=== PATIENT | female | born 1960 | race Caucasian/White ===

== ENCOUNTER 2021-06-08 12:29 | Day surgery (SDC) | payer BC ==
[~2021-06-08] VITALS: Ht 167.6 cm; Wt 70.9 kg
[~2021-06-08 12:29] MED LIST: IBUP200 PO; KRILL OIL 1,001 EACH PO; VITAMIN D325 MC3 PO
== END 2021-06-08 15:40 | disposition home or self-care (01) ==
LOC: ORSCSDS 12:29
PROVIDERS: Internal Medicine Gastroenterology
PROC: 0DBK8ZX Excision of Ascending Colon, Via Natural or Artificial Opening Endoscopic, Diagnostic (ICD-10-PCS; principal; 2021-06-08 14:30)
PROC: 0DBH8ZX Excision of Cecum, Via Natural or Artificial Opening Endoscopic, Diagnostic (ICD-10-PCS; principal; 2021-06-08 14:30)
DX: Z12.11 Encounter for screening for malignant neoplasm of colon (principal); Z80.0 Family history of malignant neoplasm of digestive organs; D12.0 Benign neoplasm of cecum; D12.2 Benign neoplasm of ascending colon; K57.30 Diverticulosis of large intestine without perforation or abscess without bleeding; K64.8 Other hemorrhoids
CPT/HCPCS: 88305; J0330; J0461; J2405; J2704; J7120